=== PATIENT | female | born 1970 | race Caucasian/White ===

== ENCOUNTER 2017-04-25 07:13 | Day surgery (SDC) | payer MEDICAID ==
[2017-04-25] MEDS ORDERED: Cyanocobalamin (Vitamin B12) 1,000 MCG/ML SDV IM ONE (07:15)
[2017-04-25] MEDS ORDERED: Lactated Ringers 1,000 ML IV SCH (07:15)
[2017-04-25] MEDS ORDERED: MVI, Adult with Vitamin K 10 ML, Thiamine 200 MG, Chromium/Copper/Mang/Selen/Zn 1 ML in... IV ONE ×4 (08:15)
[2017-04-25] MEDS ORDERED: Glycopyrrolate 0.2 MG/ML 2 ML SDV IVPUSH ONE (08:15)
[2017-04-25] MEDS ORDERED: Ampicillin/Sulbactam Na 3 GM in Sodium Chloride 0.9% 100 ML IV ONE (08:30)
[2017-04-25] MEDS ORDERED: Propofol 200 MG/20 ML SDV ONE (08:46)
[2017-04-25] MEDS ORDERED: fentaNYL 100 MCG/2 ML SDV ONE (08:47)
[2017-04-25] MEDS ORDERED: Midazolam 1 MG/ML 2 ML SDV ONE (08:47)
[2017-04-25] MEDS ORDERED: Pantoprazole 40 MG Vial IVPUSH ONE (09:11)
[2017-04-25 11:47] VITALS: BP 162/69
--- NOTE | 2017-05-01 08:59 | OR ---
DATE OF PROCEDURE: 04/25/2017 PREOPERATIVE DIAGNOSIS: Epigastric pain, status post [place]-en-Y gastric bypass. POSTOPERATIVE DIAGNOSIS: Marginal ulcer, status post [place]-en-Y gastric bypass. OPERATIVE PROCEDURE: Upper GI endoscopy with biopsies of gastric pouch for CLOtest. ANESTHESIA: IV sedation. INDICATION FOR PROCEDURE: This is a 46-year-old, status post [place]at-en-Y gastric bypass in 2013. She has had progressive problems with some epigastric discomfort, along with sense of dysphagia. The patient has been on Pepcid and Carafate. Plan is to proceed with an upper GI endoscopy with biopsies as indicated. Potential risks, including bleeding and perforation were discussed, and the patient wishes to proceed. DETAILS OF PROCEDURE: The patient was taken to the operating room and placed in a left lateral decubitus position. IV sedation was administered, after which the upper GI endoscope was passed orally through the length of the esophagus and into the gastric pouch and from there through the gastrojejunostomy, roughly 20 cm into the [place] limb. The proximal aspect of the examination, i.e. the esophagus and esophagogastric junction, was unremarkable. There was some mild redness within the gastric pouch. More importantly, there was well-defined marginal ulcer located posteriorly over roughly 1 to 1.5 cm. This area was covered with fibrinous exudate and began immediately at the gastrojejunostomy and extending down to the jejunum from there. No stricturing per se was identified. The remainder of the [place] limb was unremarkable. At this point, biopsies were obtained from the gastric pouch and sent for CLOtest for H. pylori. Minimal bleeding from the biopsy sites was seen and the scope was then withdrawn and procedure then concluded. PLAN: The patient will be given Protonix 40 mg IV push in the recovery room and then begun on Protonix 40 mg daily. After a few days, she will be instructed to stop the Pepcid, but continue the Carafate. I will have the patient see Mally Davis PA-C, at [facility] in 1 month. Mil Guajardo MD /[id number]
== END 2017-04-25 12:13 | disposition home or self-care (01) ==
LOC: JP.SDS 07:13
PROVIDERS: ATTEND Surgery
DX: K28.9 Gastrojejunal ulcer, unspecified as acute or chronic, without hemorrhage or perforation (principal); I10 Essential (primary) hypertension; K21.9 Gastro-esophageal reflux disease without esophagitis; Z98.84 Bariatric surgery status; Z88.8 Allergy status to other drugs, medicaments and biological substances
CPT/HCPCS: 43239; 87081; C9113; J0295; J2250; J2704; J3010; J3411; J3420; J7030; J7120; J3490

== ENCOUNTER 2021-12-23 05:20 | Day surgery (SDC) | payer MEDICAID ==
[2021-12-23] MEDS ORDERED: Dextrose 5%-Lactated Ringers 1,000 ML IV SCH (06:00)
[2021-12-23] MEDS ORDERED: Midazolam 1 MG/ML 2 ML SDV ONE (07:19)
[2021-12-23] MEDS ORDERED: Propofol 200 MG/20 ML SDV ONE (07:19)
[2021-12-23] MEDS ORDERED: fentaNYL 100 MCG/2 ML SDV ONE (07:19)
[2021-12-23 09:06] VITALS: BP 120/77; PULSE 65
== END 2021-12-23 09:20 | disposition home or self-care (01) ==
LOC: JP.SDS 05:20
PROVIDERS: ATTEND Surgery
DX: K63.89 Other specified diseases of intestine (principal); I10 Essential (primary) hypertension; K21.9 Gastro-esophageal reflux disease without esophagitis
CPT/HCPCS: 45380; 87046; 87493; 87899; 88305; 89055; J2250; J2704; J3010; J7121